=== PATIENT | male | born 2005 | race Caucasian/White ===

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

== ENCOUNTER 2025-06-01 20:20 | Emergency (ER) | payer OTHER, SELFPAY ==
--- OUTSIDE RECORDS SUMMARY | 2025-06-01 20:26 | XMS_ITS | Clinical Summary ---
Author Organization [facility] Address [address] [place] [id number] Care Team Providers Care Supervisor Twisting Department Name Role Phone Unavailable Primary Care Provider Unavailabl e Social History Tobacco Use Types Packs/Day Years Used Date Smoking Tobacco: Never Assessed Sex and Gender Information Value Date Recorded Sex Assigned at Not on file Legal Sex Male 1:41 PM [employer] Gender Identity Not on file Sexual Orientation Not on file Last Filed Vital Signs Vital Sign Reading Time Taken Comments Blood Pressure 140/76 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 Pulse - - Temperature - - Respiratory Rate - - Oxygen Saturation - - Inhaled Oxygen Concentration - - Weight 85.5 kg (188 lb 8 oz) 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 Height 176.5 cm (5' 9.5 ) 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 Body Mass Index 27.44 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 Plan of Treatment Health Maintenance Due Date Last Done Comments HIV Screening 2004 Hepatitis C Screening ages 1 8 to 79 once 2004 MMR VACCINES (1 of 1 - Stand juan series) 2005 YEARLY WELLNESS EXAM 2007 DTaP/Tdap/Td Vaccines (1 - Tdap) 2011 DEPRESSION SCREENING 2016 Varicella Vaccine (1 of 2 - 13+ 2-dose series) 2017 HPV VACCINES (1 - Male 3-dos e series) 2019 Meningococcal B Vaccine (1 o f 2 - Standard) 2020 BMI Above/Below Normal Parameters 2022 ADULT TETANUS 2023 HEPATITIS B VACCINES (1 of 3 - 19+ 3-dose series) 2023 Influenza Vaccine 04/12/2025 COVID-19 Immunization (1 - 2 024-25 season) 2025 Zoster Vaccine (Recombinant Vaccine) (1 of 2) 2054 HEPATITIS A VACCINES Aged Out No long er eligible based on patient's age to complete this topic HIB VACCINES Aged Out No longer eligi ble based on patient's age to complete this topic IPV VACCINES Aged Out No longer eligi ble based on patient's age to complete this topic MENINGOCOCCAL VACCINE Aged Out No aman roddy eligible based on patient's age to complete this topic Pneumococcal Vaccine: Peds t o 50 & At-Risk Patients Aged Out No longer eligible b ased on patient's age to complete this topic ROTAVIRUS VACCINES Aged Out No longer eligible based on patient's age to complete this topic Insurance [employer]
[2025-06-01 20:43] VITALS: BP 113/77; PULSE 89; RESP 18; TEMP 36.6; O2SAT 97; BMI 28.7
[2025-06-01 21:31] VITALS: BP 108/85; PULSE 95; O2SAT 95
[2025-06-01] MEDS: tetanus-dipt-pertussis 0.5 mL SDV IM (22:36)
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
[2025-06-01] MEDS: HYDROcodone-acetaminophen 10-325 mg Tablet 1 TAB PO (23:00)
[2025-06-01] MEDS: mupirocin oint 22 gm 1 APPLIC TOPICAL (23:00)
[2025-06-01] MEDS: lidocaine-epi 1% 20 mL INJ INJECTION (23:01)
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
[2025-06-02] MEDS: HYDROcodone-acetaminophen 10-325 mg Tablet 1 TAB PO ×2 (01:11→01:12)
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
== END 2025-06-02 01:17 | disposition home or self-care (01) ==
PROVIDERS: Emergency Provider Physician Assistant; PCP Nurse Practitioner
DX: S81.811A Laceration without foreign body, right lower leg, initial encounter (principal); S40.812A Abrasion of left upper arm, initial encounter; S40.811A Abrasion of right upper arm, initial encounter; S41.111A Laceration without foreign body of right upper arm, initial encounter; V20.09XA Other motorcycle driver injured in collision with pedestrian or animal in nontraffic accident, initial encounter
CPT/HCPCS: 12001; 73080; 73090; 73560; 74022; 90471; 90715; 99284; J9999